=== PATIENT | male | born 1970 | race Caucasian/White ===

== ENCOUNTER 2016-06-02 10:25 | Emergency (ER) | payer OTHER ==
[2016-06-02] MEDS ORDERED: SODIUM CHLORIDE 0.9% 1,000 ML IV STA ×2 (11:22)
--- NOTE | 2016-06-02 11:28 | ED ---
Dizziness HPI - General Chief Complaint: Dizziness Stated Complaint: unexplained weight loss Time Seen by Provider: 06/02/16 10:46 Source: patient, RN notes reviewed Mode of arrival: ambulatory Limitations: no limitations - History of Present Illness Initial Comments: Is a 46-year-old male who presents with complaints of dizziness and lightheadedness. He states he been having 2 months of loose stool 2 or 3 episodes today he's had weight loss since gone from 140 pounds 117 pounds. He also lost about 5 pounds over this past weekend today being Thursday. He states he was seen at the [facility] ER over the weekend and had lab work done that appear to be normal. He presents today because of abdominal bloating loose stool in the continued weight loss. He also states she's had some blood in his stool also. No family history of abdominal problems other than reflux in his dad. MD Complaint: dizziness, lightheadedness, other - Related Data Home Medications Medication Instructions Recorded Confirmed Pantoprazole Sodium [Protonix] 40 mg PO HS 06/02/16 06/02/16 Previous Rx's Medication Instructions Recorded Sucralfate [Carafate] 1 gm PO ACHS #20 tablet 06/02/16 Allergies Allergy/AdvReac Type Severity Reaction Status Date / Time No Known Allergies Allergy Unverified 06/02/16 11:16 Review of Systems ROS Statement: Those systems with pertinent positive or pertinent negative responses have been documented in the HPI. ROS Other: All systems not noted in ROS Statement are negative. Cardiovascular: Reports: as per HPI Gastrointestinal: Reports: as per HPI Past Medical History Past Medical History: No Reported History History of Any Multi-Drug Resistant Organisms: None Reported Additional Past Surgical History / Comment(s): sinus surg Past Psychological History: No Psychological Hx Reported Smoking Status: Never smoker Past Alcohol Use History: Occasional Past Drug Use History: Marijuana General Exam - General Exam Comments Initial Comments: This is a well-developed asthenic appearing male awake alert oriented 3 Limitations: no limitations General appearance: alert, in no apparent distress Head exam: Present: atraumatic, normocephalic, normal inspection Eye exam: Present: normal appearance, PERRL, EOMI. Absent: scleral icterus, conjunctival injection, periorbital swelling ENT exam: Present: mucous membranes dry Neck exam: Present: normal inspection. Absent: tenderness, meningismus, lymphadenopathy Respiratory exam: Present: normal lung sounds bilaterally. Absent: respiratory distress, wheezes, rales, rhonchi, stridor Cardiovascular Exam: Present: normal rhythm, tachycardia, normal heart sounds. Absent: systolic murmur, diastolic murmur, rubs, gallop, clicks GI/Abdominal exam: Present: soft, tenderness (Area mild epigastric tenderness to palpation no guarding rebound masses or bruits), normal bowel sounds. Absent : distended, guarding, rebound, rigid Extremities exam: Present: normal inspection, full ROM, normal capillary refill. Absent: tenderness, pedal edema, joint swelling, calf tenderness Back exam: Present: normal inspection Neurological exam: Present: alert, oriented X3, CN II-XII intact Psychiatric exam: Present: normal affect, normal mood Skin exam: Present: warm, dry, intact, normal color. Absent: rash Course Vital Signs 06/02/16 06/02/16 06/02/16 10:28 11:56 12:38 Temperature 97.9 F Pulse Rate 114 H 89 80 Respiratory 18 16 Rate Blood Pressure 189/115 157/99 132/93 O2 Sat by Pulse 98 97 99 Oximetry 06/02/16 13:25 Temperature Pulse Rate 68 Respiratory Rate Blood Pressure 121/90 O2 Sat by Pulse 97 Oximetry EKG Findings - EKG Results: EKG: interpreted by ERMD (Sinus rhythm rate of 85. Interval 134 QRS duration 84 QT/QTC of 372/442 evidence of right atrial enlargement no acute ST-T wave changes.) Medical Decision Making - Medical Decision Making Patient is feeling improved after IV hydration he will be discharged with follow -up with his surgeon as already planned. Placed on Protonix and he still has symptoms at night. - Lab Data Result diagrams: 06/02/16 10:45 06/02/16 10:45 Lab Results 06/02/16 06/02/16 06/02/16 Range/Units 10:45 10:45 11:41 WBC 4.5 (3.8-10.6) k/uL RBC 5.36 (4.30-5.90) m/uL Hgb 17.6 H (13.0-17.5) gm/dL Hct 51.2 (39.0-53.0) % MCV 95.5 (80.0-100.0) fL MCH 32.7 (25.0-35.0) pg MCHC 34.3 (31.0-37.0) g/dL RDW 12.1 (11.5-15.5) % Plt Count 172 (150-450) k/uL Neutrophils % 63 % Lymphocytes % 24 % Monocytes % 10 % Eosinophils % 0 % Basophils % 0 % Neutrophils # 2.9 (1.3-7.7) k/uL Lymphocytes # 1.1 (1.0-4.8) k/uL Monocytes # 0.5 (0-1.0) k/uL Eosinophils # 0.0 (0-0.7) k/uL Basophils # 0.0 (0-0.2) k/uL Sodium 141 (137-145) mmol/L Potassium 3.5 (3.5-5.1) mmol/L Chloride 102 (98-107) mmol/L Carbon Dioxide 24 (22-30) mmol/L Anion Gap 15 mmol/L BUN 12 (9-20) mg/dL Creatinine 0.77 (0.66-1.25) mg/dL Est GFR (MDRD) Af Amer >60 (>60 ml/min/1.73 sqM) Est GFR (MDRD) Non-Af >60 (>60 ml/min/1.73 sqM) Glucose 101 H (74-99) mg/dL Plasma Lactic Acid Teddy 1.2 (0.7-2.0) mmol/L Calcium 9.6 (8.4-10.2) mg/dL Magnesium 1.7 (1.6-2.3) mg/dL Total Bilirubin 0.9 (0.2-1.3) mg/dL AST 29 (17-59) U/L ALT 35 (21-72) U/L Alkaline Phosphatase 74 (38-126) U/L Total Protein 7.8 (6.3-8.2) g/dL Albumin 4.7 (3.5-5.0) g/dL Amylase 55 (30-110) U/L Lipase 158 (23-300) U/L Urine Color Urine Appearance (Clear) Urine pH (5.0-8.0) Ur Specific [place] (1.001-1.035) Urine Protein (Negative) Urine Glucose (UA) (Negative) Urine Ketones (Negative) Urine Blood (Negative) Urine Nitrate (Negative) Urine Bilirubin (Negative) Urine Urobilinogen (<2.0) mg/dL Ur Leukocyte Esterase (Negative) Urine RBC (0-5) /hpf Urine WBC (0-5) /hpf 06/02/16 Range/Units 11:41 WBC (3.8-10.6) k/uL RBC (4.30-5.90) m/uL Hgb (13.0-17.5) gm/dL Hct (39.0-53.0) % MCV (80.0-100.0) fL MCH (25.0-35.0) pg MCHC (31.0-37.0) g/dL RDW (11.5-15.5) % Plt Count (150-450) k/uL Neutrophils % % Lymphocytes % % Monocytes % % Eosinophils % % Basophils % % Neutrophils # (1.3-7.7) k/uL Lymphocytes # (1.0-4.8) k/uL Monocytes # (0-1.0) k/uL Eosinophils # (0-0.7) k/uL Basophils # (0-0.2) k/uL Sodium (137-145) mmol/L Potassium (3.5-5.1) mmol/L Chloride (98-107) mmol/L Carbon Dioxide (22-30) mmol/L Anion Gap mmol/L BUN (9-20) mg/dL Creatinine (0.66-1.25) mg/dL Est GFR (MDRD) Af Amer (>60 ml/min/1.73 sqM) Est GFR (MDRD) Non-Af (>60 ml/min/1.73 sqM) Glucose (74-99) mg/dL Plasma Lactic Acid Teddy (0.7-2.0) mmol/L Calcium (8.4-10.2) mg/dL Magnesium (1.6-2.3) mg/dL Total Bilirubin (0.2-1.3) mg/dL AST (17-59) U/L ALT (21-72) U/L Alkaline Phosphatase (38-126) U/L Total Protein (6.3-8.2) g/dL Albumin (3.5-5.0) g/dL Amylase (30-110) U/L Lipase (23-300) U/L Urine Color Light Yellow Urine Appearance Clear (Clear) Urine pH 6.0 (5.0-8.0) Ur Specific [place] 1.006 (1.001-1.035) Urine Protein Negative (Negative) Urine Glucose (UA) Negative (Negative) Urine Ketones 1+ H (Negative) Urine Blood Trace H (Negative) Urine Nitrate Negative (Negative) Urine Bilirubin Negative (Negative) Urine Urobilinogen <2.0 (<2.0) mg/dL Ur Leukocyte Esterase Negative (Negative) Urine RBC 2 (0-5) /hpf Urine WBC <1 (0-5) /hpf Disposition Clinical Impression: Gastroenteritis, Dehydration Disposition: HOME SELF-CARE Condition: Good Instructions: Gastroenteritis (ED), Dehydration (ED) Prescriptions: Sucralfate [Carafate] 1 gm PO ACHS #20 tablet
[2016-06-02 11:48] LABS: Basophils % (A) 0 %; CHCM 35.8; Eosinophils % (A) 0 %; HCT 51.2 % (39.0-53.0); HGB 17.6 gm/dL (13.0-17.5); Luc # (Auto) 0.12; Luc % (Auto) 3; Lymphocytes # (A) 1.1 k/uL (1.0-4.8); Lymphocytes % (A) 24 %; MCH 32.7 pg (25.0-35.0); MCHC 34.3 g/dL (31.0-37.0); MCV 95.5 fL (80.0-100.0); Mean Platelet Volume 7.2; Monocytes # (A) 0.5 k/uL (0-1.0); Monocytes % (A) 10 %; Neutrophils # (A) 2.9 k/uL (1.3-7.7); Neutrophils % (A) 63 %; RBC 5.36 m/uL (4.30-5.90); RDW 12.1 % (11.5-15.5); WBC 4.5 k/uL (3.8-10.6)
[2016-06-02 12:00] VITALS: RESP 16
[2016-06-02 12:02] LABS: ALT 35 U/L (21-72); AST 29 U/L (17-59); Alkaline Phosphatase 74 U/L (38-126); Amylase 55 U/L (30-110); Anion Gap 15 mmol/L; Blood Urea Nitrogen 12 mg/dL (9-20); Calcium 9.6 mg/dL (8.4-10.2); Carbon Dioxide 24 mmol/L (22-30); Chloride 102 mmol/L (98-107); Glucose 101 mg/dL (74-99); Magnesium 1.7 mg/dL (1.6-2.3); Non-African American GFR(MDRD) >60 (>60 ml/min/1.73 sqM); Potassium 3.5 mmol/L (3.5-5.1); Sodium 141 mmol/L (137-145); Total Bilirubin 0.9 mg/dL (0.2-1.3); Total Protein 7.8 g/dL (6.3-8.2)
[2016-06-02 12:07] LABS: Appearance,Urine Clear (Clear); Bilirubin,Urine Negative (Negative); Glucose,Urine (UA) Negative (Negative); Ketones,Urine 1+ (Negative); Leukocyte Esterase,Urine Negative (Negative); Nitrite,Urine Negative (Negative); Particle Count 903; Protein,Urine Negative (Negative); RBC,Urine 2 /hpf (0-5); Specific Gravity,Urine 1.006 (1.001-1.035); UA Billing (MACRO vs. MICRO) MICRO; Urobilinogen,Urine <2.0 mg/dL (<2.0); WBC,Urine <1 /hpf (0-5)
[2016-06-02] MEDS ORDERED: ACETAMINOPHEN IV (For NPO) 1,000 MG in EMPTY BAG 1 BAG IVPB STA (12:53)
[2016-06-02 14:47] VITALS: BP 139/87; PULSE 75; TEMP 97.6
== END 2016-06-02 14:47 | disposition home or self-care (01) ==
LOC: EC 10:25
DX: K52.9 Noninfective gastroenteritis and colitis, unspecified (principal); R00.0 Tachycardia, unspecified; Z79.899 Other long term (current) drug therapy
CPT/HCPCS: 99284 ×2; 96360; 36415; 93005; 80053; 82150; 83605; 83690; 83735; 85025; 81001; 96374; 96361; J0131

== ENCOUNTER → 2016-06-11 | Outpatient (CLI) | payer OTHER ==
--- NOTE | 2016-06-11 10:31 | FL ---
EXAMINATION TYPE: FL UGI air w esophagus DATE OF EXAM: 06/11/2016 10:15 AM COMPARISON: NONE HISTORY: Weight loss TECHNIQUE: A double contrast UGI and esophagram study is performed. FINDINGS: Beaming Machine Operator image of the abdomen shows no gross abnormality. The esophagus shows normal motility and emptying into the stomach. Tiny hiatal hernia noted. Mild fol d thickening involving the mid and distal esophagus. The stomach shows normal distensibility, peristalsis, and mucosal folds. No evidence of any mass or ulcer disease. No significant gastroesophageal reflux was seen during real time performance of this study. The duodenal bulb, sweep, and proximal small bowel loops are unremarkable. IMPRESSION: 1. There is a lateral compression of the cervical esophagus at the level of C4-C6 on the left which m ay be related to incomplete distention. The patient scheduled for direct visualization attention to t his area is recommended. 2. Tiny hiatal hernia but no evidence of reflux. 3. Mild fold thickening involving the mid and distal esophagus. Correlate clinically for esophagitis.
== END | disposition home or self-care (01) ==
LOC: RADFLWHC 09:39
PROVIDERS: ATTEND Surgery
DX: K44.9 Diaphragmatic hernia without obstruction or gangrene (principal); K22.8 Other specified diseases of esophagus
CPT/HCPCS: 74246

== ENCOUNTER 2016-06-13 09:24 | Day surgery (SDC) | payer OTHER ==
[2016-06-10 12:33] VITALS: BMI 18.0
[~2016-06-13 09:24] MED LIST: LACTATED RINGERS 1,000 ML IV SCH
[2016-06-13] MEDS ORDERED: LIDOCAINE 1% 20 ML VIAL (10MG/ML) FOR IV START INTRADERMA ONE (09:50)
[2016-06-13 09:54] VITALS: RESP 16; TEMP 97.1
--- NOTE | 2016-06-13 10:32 | P.GSHP ---
History of Present Illness H&P Date: 06/13/16 Chief Complaint: Dysphagia, GERD This a 46-year-old male who presents today for EGD. He's had complaints of some mild dysphagia and GERD. His recent esophagram shows evidence of a small hiatal hernia as well as possible thickening of the distal esophagus associated with esophagitis. - Constitutional Constitutional: Reports as per HPI Past Medical History Past Medical History: GERD/Reflux Additional Past Medical History / Comment(s): dysphagia @times, gas, abdominal pain @times, thinks has a hiatal hernia, recent weight loss >20 lbs. History of Any Multi-Drug Resistant Organisms: None Reported Additional Past Surgical History / Comment(s): sinus surg Past Anesthesia/Blood Transfusion Reactions: No Reported Reaction Past Psychological History: No Psychological Hx Reported Smoking Status: Never smoker Past Alcohol Use History: Occasional Past Drug Use History: Marijuana Additional Drug Use History / Comment(s): occasional use - Past Family History Father Family Medical History: Cancer Medications and Allergies Home Medications Medication Instructions Recorded Confirmed Type Famotidine [Pepcid] 20 mg PO DAILY 06/10/16 06/13/16 History Allergies Allergy/AdvReac Type Severity Reaction Status Date / Time No Known Allergies Allergy Unverified 06/10/16 12:30 Surgical - Exam Vital Signs Temp Pulse Resp BP Pulse Ox 97.1 F L 81 16 145/90 99 06/13/16 09:53 06/13/16 09:53 06/13/16 09:53 06/13/16 09:53 06/13/16 09:53 - General well developed, no distress - Eyes PERRL - ENT normal pinna - Neck no masses - Respiratory normal expansion - Cardiovascular Rhythm: regular - Abdomen Abdomen: soft, non tender Assessment and Plan Plan: GERD, dysphagia. We'll perform EGD.
[2016-06-13] MEDS ORDERED: LIDOCAINE 1% INJ 10MG/ML (20 ML MDV) ONE (10:35)
[2016-06-13] MEDS ORDERED: PROPOFOL 10 MG/ML 20 ML VIAL IV ONE (10:35)
--- NOTE | 2016-06-13 10:45 | P.OP ---
Date of Procedure: 06/13/16 Preoperative Diagnosis: GERD Postoperative Diagnosis: Mild antral gastritis Small hiatal hernia Mild esophagitis Procedure(s) Performed: EGD Anesthesia: MAC Surgeon: Pacheco Hummel Pathology: none sent (Antrum, esophagus) Condition: stable Disposition: PACU Description of Procedure: The patient's placed on the endoscopy table in the lateral position. He received IV sedation. The gastroscope some placed oropharynx and passed into the esophagus and into the stomach. The scope was then placed through the pylorus. The first and second portion of the duodenum was then brought back the antrum and this is mildly inflamed. A biopsy was performed. The scope was then retroflexed and the remainder of the stomach appeared normal. There was a very small hiatal hernia. The GE junction was at 40 cm. The distal esophagus appeared mildly inflamed a biopsies performed. The proximal esophagus appeared normal. Scope was withdrawn for patient.
[2016-06-13 11:12] VITALS: BP 128/89; PULSE 66
== END 2016-06-13 11:33 | disposition home or self-care (01) ==
LOC: ORWHC2ENDO 09:24
PROVIDERS: ATTEND Surgery
DX: K21.0 Gastro-esophageal reflux disease with esophagitis (principal); K29.50 Unspecified chronic gastritis without bleeding; K44.9 Diaphragmatic hernia without obstruction or gangrene; Z79.899 Other long term (current) drug therapy
CPT/HCPCS: 88305; 88342; 43239; J2001; J2704